=== PATIENT | female | born 1955 | race Caucasian/White ===

== ENCOUNTER 2017-10-17 14:44 | Emergency (ER) | payer MEDICAID ==
[~2017-10-17] VITALS: Ht 165.1 cm; Wt 71.0 kg
[~2017-10-17 14:44] MED LIST: AMOX500T2; CAPSAICIN; CITA40TA22; CLAR500T3; DEPER5; DICLOFENAC; HYDR25TA; IRON; LEVOTHYROXINE; METH500T6; OMEPRAZOLE
[2017-10-17] MEDS ORDERED: ACETAMINOPHEN 325MG TABLET PO ONE ×2 (17:15→19:15)
[2017-10-17 19:55] VITALS: BP 149/74
== END 2017-10-17 21:44 | disposition home or self-care (01) ==
LOC: ER 14:51
DX: S00.83XA Contusion of other part of head, initial encounter (principal); M25.551 Pain in right hip; I10 Essential (primary) hypertension; F17.200 Nicotine dependence, unspecified, uncomplicated; Y08.89XA Assault by other specified means, initial encounter; Y93.89 Activity, other specified; Y99.8 Other external cause status; Y92.89 Other specified places as the place of occurrence of the external cause; Z88.8 Allergy status to other drugs, medicaments and biological substances
CPT/HCPCS: 70110; 72170; 99284

== ENCOUNTER 2018-08-13 19:45 | Emergency (ER) | payer MEDICAID ==
[~2018-08-13] VITALS: Ht 165.1 cm; Wt 73.0 kg
[2018-08-13] MEDS ORDERED: OLANZAPINE 5MG TABLET ODT PO ONE (23:00)
[2018-08-13] MEDS ORDERED: LORAZEPAM 1MG TABLET PO ONE (23:00)
[2018-08-13 23:25] LABS: BASOPHILS % 1.1 % (0.0-2.0); EOSINOPHILS % 0.7 % (0.0-5.0); HEMATOCRIT. 37.9 % (36.0-48.0); HEMOGLOBIN. 13.4 g/dL (12.0-16.0); LYMPHOCYTES % 40.6 % (20.0-50.0); MEAN CORPUSCULAR HEMOGLOBIN 33.3 pg (28.0-32.0); MEAN CORPUSCULAR VOLUME 94.3 fL (81.0-99.0); MEAN PLATELET VOLUME 7.9 fl (7.4-10.4); MONOCYTES % 8.8 % (2.0-8.0); NEUTROPHILS % 48.8 % (40.0-76.0); PLATELET 240 x1000/uL (130-400); RED BLOOD CELL COUNT 4.02 mill/uL (4.2-5.4); RED CELL DISTRIBUTION WIDTH 15.3 % (11.6-14.6)
[2018-08-13 23:33] LABS: CHLORIDE 103 mEq/L (98-107)
[2018-08-13 23:48] LABS: ETHANOL BLOOD < 10 mg/dL
[2018-08-13 23:50] LABS: *AMPHETAMINES SCREEN URINE NEGATIVE (NEGATIVE); *BARBITURATES SCREEN URINE NEGATIVE (NEGATIVE); *BENZODIAZEPINES SCREEN URINE NEGATIVE (NEGATIVE); *COCAINE SCREEN URINE NEGATIVE (NEGATIVE); CANNABINOID URINE SCREEN PRESUMTIVE POSITIVE (NEGATIVE); METHADONE URINE SCREEN NEGATIVE (NEGATIVE); OPIATES URINE SCREEN NEGATIVE (NEGATIVE); PHENCYCLIDINE URINE SCREEN NEGATIVE (NEGATIVE)
[2018-08-14 11:22] VITALS: BP 146/83
== END 2018-08-14 11:57 ==
LOC: ER 19:45
DX: R45.851 Suicidal ideations (principal); F20.9 Schizophrenia, unspecified; F31.9 Bipolar disorder, unspecified; Z88.8 Allergy status to other drugs, medicaments and biological substances; Z79.899 Other long term (current) drug therapy; I10 Essential (primary) hypertension
CPT/HCPCS: 36415; 80048; 80305; 80307; 80329; 85025; 99285; G0482

== ENCOUNTER 2020-11-28 13:01 | Inpatient (IN) | payer MEDICAID ==
[~2020-11-28] VITALS: Ht 162.6 cm; Wt 93.0 kg
[~2020-11-28 13:01] MED LIST changes: -AMOX500T2; +ARIP5TAB58 MT; +ASPI-1497 MT; +ATOR-2 MT; -CAPSAICIN; -CITA40TA22; -CLAR500T3; +CYCL10TA7 MT; -DICLOFENAC; +ESK450 MT; +GABA-529 MT; +HYDR-4135 MT; -HYDR25TA; +HYDR50TA55 MT; -IRON; +LEVO150T8 MT; -LEVOTHYROXINE; +LISI20TA31 MT; +LITH150C MT; -METH500T6; -OMEPRAZOLE
[2020-11-28] MEDS ORDERED: SODIUM CHLORIDE 0.9% 1,000 ML IV ONE (13:45)
[2020-11-28 13:58] LABS: BASOPHILS % 0.9 % (0.0-2.0); HEMATOCRIT. 42.6 % (36.0-48.0); HEMOGLOBIN. 14.1 g/dL (12.0-16.0); LYMPHOCYTES % 35.9 % (20.0-50.0); MEAN CORPUSCULAR HEMOGLOBIN 28.4 pg (28.0-32.0); MEAN PLATELET VOLUME 8.7 fl (7.4-10.4); MONOCYTES % 6.2 % (2.0-8.0); PLATELET 247 x1000/uL (130-400); RED BLOOD CELL COUNT 4.95 mill/uL (4.2-5.4); RED CELL DISTRIBUTION WIDTH 16.7 % (11.6-14.6)
[2020-11-28 14:05] LABS: CHLORIDE 101 mEq/L (98-107)
[2020-11-28 14:19] LABS: INR 0.9; PROTHROMBIN TIME 9.8 sec (9.6-11.0)
[2020-11-28] MEDS ORDERED: GUAIFENESIN 200MG/10ML SUGAR FREE UDC PO PRN (20:30)
[2020-11-28] MEDS ORDERED: DIPHENHYDRAMINE 50MG/ML VIAL IV PRN (20:30)
[2020-11-28] MEDS ORDERED: DOCUSATE SODIUM 100MG CAPSULE PO PRN (20:30)
[2020-11-28] MEDS ORDERED: HYDRALAZINE 20MG/ML VIAL IV PRN (20:30)
[2020-11-28] MEDS ORDERED: HYDROCODONE/ACETAMINOPHEN 5/325MG TABLET PO PRN (20:30)
[2020-11-28] MEDS ORDERED: MORPHINE SULFATE 2 MG/ML CPJ (NOT FOR IM USE) IV PRN (20:30)
[2020-11-28] MEDS ORDERED: ONDANSETRON HCL 4MG/2ML INJ IV PRN (20:30)
[2020-11-28] MEDS ORDERED: LORAZEPAM 2MG/ML CPJ IV PRN (20:30)
[2020-11-28] MEDS ORDERED: ACETAMINOPHEN 325MG TABLET PO PRN (20:30)
[2020-11-28] MEDS ORDERED: CLONIDINE 0.1MG TABLET PO PRN (20:30)
[2020-11-28] MEDS ORDERED: MAGNESIUM/ALUMINUM HYDROXIDE/SIMETHICONE 30ML UDC PO PRN (20:30)
[2020-11-28] MEDS ORDERED: IPRATROPIUM/ALBUTEROL 0.5-3(2.5)MG/3ML NEB HHN PRN (20:30)
[2020-11-28] MEDS ORDERED: POTASSIUM CHLORIDE 20MEQ TABLET SR PO NR (21:00)
[2020-11-28] MEDS: ENOXAPARIN 40MG/0.4ML SYR SUBCUT SCH (22:11)
[2020-11-28] MEDS: SODIUM CHLORIDE 0.9% INJ 3ML FLUSH IVF SCH (23:38)
[2020-11-29 00:58] LABS: CREATINE KINASE 748 IU/L (26-192); CREATINE KINASE MB FRACTION 7.9 ng/mL (0.5-3.6)
[2020-11-29 05:34] LABS: BASOPHILS % 0.8 % (0.0-2.0); EOSINOPHILS % 0.6 % (0.0-5.0); HEMATOCRIT. 43.6 % (36.0-48.0); HEMOGLOBIN. 14.5 g/dL (12.0-16.0); LYMPHOCYTES % 32.6 % (20.0-50.0); MEAN CORPUSCULAR HEMOGLOBIN 28.6 pg (28.0-32.0); MEAN CORPUSCULAR VOLUME 85.8 fL (81.0-99.0); MEAN PLATELET VOLUME 8.9 fl (7.4-10.4); MONOCYTES % 7.3 % (2.0-8.0); NEUTROPHILS % 58.7 % (40.0-76.0); PLATELET 271 x1000/uL (130-400); RED BLOOD CELL COUNT 5.08 mill/uL (4.2-5.4); RED CELL DISTRIBUTION WIDTH 16.8 % (11.6-14.6)
[2020-11-29 05:42] LABS: CHLORIDE 103 mEq/L (98-107)
[2020-11-29 05:55] LABS: CREATINE KINASE 625 IU/L (26-192)
[2020-11-29] MEDS: SODIUM CHLORIDE 0.9% INJ 3ML FLUSH IVF SCH ×3 (07:33→22:47)
[2020-11-29] MEDS: ASPIRIN 81MG EC TABLET PO SCH ×2 (09:19→17:46)
[2020-11-29 11:00] VITALS: BP 135/78
[2020-11-29 12:09] LABS: LDL CHOLESTEROL 214 mg/dL (5-100)
[2020-11-29 12:11] LABS: HDL CHOLESTEROL 63 mg/dL (40-59)
[2020-11-29 12:12] LABS: T4 FREE 0.18 ng/dL (0.76-1.46)
[2020-11-29 12:28] VITALS: BP 135/78
[2020-11-29 15:28] LABS: CREATINE KINASE 550 IU/L (26-192)
[2020-11-29 15:29] LABS: CREATINE KINASE MB FRACTION 5.3 ng/mL (0.5-3.6)
[2020-11-29 16:00] VITALS: BP 159/93
[2020-11-29] MEDS: LISINOPRIL 20MG TABLET PO SCH (17:49)
[2020-11-29 20:00] VITALS: BP 114/61
[2020-11-29] MEDS ORDERED: DIVALPROEX SODIUM 500MG ER TABLET PO SCH (21:00)
[2020-11-29] MEDS ORDERED: ATORVASTATIN CALCIUM 40MG TABLET PO SCH (21:00)
[2020-11-29] MEDS: HYDRALAZINE HCL 50MG TABLET PO SCH (22:40)
[2020-11-29] MEDS: ENOXAPARIN 40MG/0.4ML SYR SUBCUT SCH (22:40)
[2020-11-29] MEDS: LEVOTHYROXINE SODIUM 150MCG TABLET PO SCH (22:40)
[2020-11-30 01:21] LABS: CREATINE KINASE 557 IU/L (26-192)
[2020-11-30 04:00] VITALS: BP 123/59
[2020-11-30] MEDS: SODIUM CHLORIDE 0.9% INJ 3ML FLUSH IVF SCH ×2 (06:14→14:00)
[2020-11-30] MEDS: HYDRALAZINE HCL 50MG TABLET PO SCH ×2 (06:14→15:17)
[2020-11-30] MEDS: LEVOTHYROXINE SODIUM 150MCG TABLET PO SCH (06:14)
[2020-11-30 08:00] VITALS: BP 109/50
[2020-11-30] MEDS ORDERED: LITHIUM CARBONATE 150 MG CAPSULE PO SCH (09:00)
[2020-11-30] MEDS: LISINOPRIL 20MG TABLET PO SCH (09:00)
[2020-11-30] MEDS ORDERED: ARIPIPRAZOLE 5MG TABLET PO SCH (09:00)
[2020-11-30] MEDS: ASPIRIN 81MG EC TABLET PO SCH ×2 (09:00→09:08)
[2020-11-30 09:59] LABS: CREATINE KINASE 496 IU/L (26-192); CREATINE KINASE MB FRACTION 5.6 ng/mL (0.5-3.6)
[2020-11-30 12:00] VITALS: BP 126/77
[2020-11-30 16:00] VITALS: BP 146/77
[2020-11-30 16:48] VITALS: BP 146/77
== END 2020-11-30 18:05 | disposition home or self-care (01) | DRG 427 ==
LOC: ER 13:07 → MICUSO 16:28 → EDBEDREQ 16:40 → EDBEDREQTM 16:40 → 5WST 11-29 10:15
PROVIDERS: ADMIT Internal Medicine; ATTEND Internal Medicine
DX: E03.9 Hypothyroidism, unspecified (principal); E87.6 Hypokalemia; I48.91 Unspecified atrial fibrillation; F20.9 Schizophrenia, unspecified; F31.9 Bipolar disorder, unspecified; I10 Essential (primary) hypertension; F17.210 Nicotine dependence, cigarettes, uncomplicated; Z20.822 Contact with and (suspected) exposure to COVID-19; E66.01 Morbid (severe) obesity due to excess calories; E78.5 Hyperlipidemia, unspecified; Z88.8 Allergy status to other drugs, medicaments and biological substances; Z79.899 Other long term (current) drug therapy; I69.354 Hemiplegia and hemiparesis following cerebral infarction affecting left non-dominant side; Z68.35 Body mass index [BMI] 35.0-35.9, adult; E11.649 Type 2 diabetes mellitus with hypoglycemia without coma
CPT/HCPCS: 36415; 70551; 80053; 80061; 80165; 82550; 82553; 83036; 83880; 84439; 84443; 84484; 85025; 85379; 93005; 93306; 93880; 93970; 99285; J0360; J1650; J2060; J2405; J7030; U0003